=== PATIENT | male | born 1980 | race Hispanic/Latino ===

== ENCOUNTER 2016-12-19 08:33 | Emergency (ER) | payer SELFPAY ==
[2016-12-19 08:38] VITALS: BP 156/80; PULSE 117; RESP 18; TEMP 98.3; O2SAT 96
--- NOTE | 2016-12-19 09:07 | ED PDOC ---
HPI: Psych/Substance Abuse Time Seen by Provider: 12/19/16 08:51 Chief Complaint (Nursing): Psychiatric Evaluation History Per: Patient History/Exam Limitations: no limitations Current Symptoms Are (Timing): Still Present Modifying Factor(s): Alcohol Additional Complaint(s): 36-year-old male, PMHx includes EtOH Abuse, Anxiety and Bipolar Disorder, presents to the emergency department with complaints of anxiety. Patient states he has been feeling increasingly depressed and anxious over the past several days. Patient woke up this morning and did not feel well, resulting in him coming to the ED for evaluation. States "my skin is crawling." Denies nausea/ vomiting, any other associated symptoms or pain. Patient reports he has been prescribed Klonopin, but does not take it because he drinks (last drink was last night. Patient is taking Trazodone and Navesink. Denies SI/HI. No other complaints at this time. Past Medical History Reviewed: Historical Data, Nursing Documentation, Vital Signs Vital Signs: Last Vital Signs Temp 98.3 F 12/19/16 08:37 Pulse 117 H 12/19/16 08:37 Resp 18 12/19/16 08:37 BP 156/80 H 12/19/16 08:37 Pulse Ox 96 12/19/16 08:37 - Family History Family History: States: Unknown Family Hx - Allergies Allergies/Adverse Reactions: Allergies Allergy/AdvReac Type Severity Reaction Status Date / Time NSAIDS (Non-Steroidal Allergy Severe Verified 12/19/16 09:03 Anti-Inflamma Review of Systems ROS Statement: Except As Marked, All Systems Reviewed And Found Negative Constitutional: Negative for: Fever, Chills Cardiovascular: Negative for: Chest Pain Respiratory: Negative for: Cough, Shortness of Breath Gastrointestinal: Negative for: Nausea, Vomiting Skin: Negative for: Rash Neurological: Negative for: Weakness, Numbness, Headache, Dizziness Psych: Positive for: Anxiety, Depression. Negative for: Suicidal ideation Physical Exam - Reviewed Nursing Documentation Reviewed: Yes Vital Signs Reviewed: Yes - Physical Exam Appears: Positive for: Non-toxic, No Acute Distress (Calm. Co-operative. No signs or sx of withdrawal.) Head Exam: Positive for: ATRAUMATIC, NORMOCEPHALIC Skin: Positive for: Warm, Dry. Negative for: Rash Eye Exam: Positive for: Normal appearance, EOMI ENT: Positive for: Other (No tongue fasciculation) Neck: Positive for: Painless ROM Cardiovascular/Chest: Positive for: Regular Rate, Rhythm. Negative for: Edema Respiratory: Positive for: Normal Breath Sounds. Negative for: Accessory Muscle Use, Respiratory Distress Gastrointestinal/Abdominal: Positive for: Soft. Negative for: Tenderness Back: Positive for: Normal Inspection. Negative for: L CVA Tenderness, R CVA Tenderness Extremity: Positive for: Normal ROM. Negative for: Tenderness, Pedal Edema Neurologic/Psych: Positive for: Alert, Oriented - ECG O2 Sat by Pulse Oximetry: 96 Pulse Ox Interpretation: Normal - Progress ED Course And Treament: 1150: Crisis saw pt. Does not meet criteria for admit. Fu outpt. AAOx3. Pain free. Ambulated with no issues. Not homicidal or suicidal at this time. Medical Decision Making Medical Decision Making: Plan * UDS, EtOH Serum * Crisis Evaluation * Reassess and Disposition Scribe Attestation: Documented by Jak Wright, acting as a scribe for Daryn Potter MD Provider Scribe Attestation: All medical record entries made by the Scribe were at my direction and personally dictated by me. I have reviewed the chart and agree that the record accurately reflects my personal performance of the history, physical exam, medical decision making, and the department course for this patient. I have also personally directed, reviewed, and agree with the discharge instructions and disposition. Disposition - Clinical Impression Clinical Impression: Depression, Alcohol abuse - Patient ED Disposition Is Patient to be Admitted: No Counseled Patient/Family Regarding: Studies Performed, Diagnosis, Need For Followup - Disposition Referrals: [facility] [Outside] - 12/20/16 Disposition: Routine/Home Disposition Time: 11:51 Condition: STABLE Additional Instructions: Return if not better in 3 days. Instructions: Abuse of Alcohol (ED), Depression (ED)
== END 2016-12-19 12:07 | disposition home or self-care (01) ==
LOC: H.ER 08:33
DX: F41.9 Anxiety disorder, unspecified (principal); F31.9 Bipolar disorder, unspecified; F10.10 Alcohol abuse, uncomplicated
CPT/HCPCS: 99282; G0480

== ENCOUNTER 2017-03-31 17:59 | Emergency (ER) | payer SELFPAY ==
[2017-03-31 18:10] VITALS: BP 127/68; PULSE 79; RESP 16; TEMP 98.7; O2SAT 97
[2017-03-31] MEDS ORDERED: Liquid Adhesive TOP ONE (18:16)
--- NOTE | 2017-03-31 18:54 | ED PDOC ---
HPI: Eye Injury/Pain Time Seen by Provider: 03/31/17 18:12 Chief Complaint (Nursing): Eye Problem Chief Complaint (Provider): Eye Problem History Per: Patient History/Exam Limitations: no limitations Onset/Duration Of Symptoms: Hrs (prior to arrival ) Additional Complaint(s): Dario Jay, 36 year old male presents to the ED for a head laceration while practicing kick-boxing today. The patient states when his arm pad was kicked, he accidentally punched himself on the left upper eyelid causing his laceration. He denies headache, loss of consciousness, neck pain, or any other injury. PMD: None Provided Past Medical History Reviewed: Historical Data, Nursing Documentation, Vital Signs Vital Signs: Last Vital Signs Temp 98.7 F 03/31/17 18:06 Pulse 79 03/31/17 18:06 Resp 16 03/31/17 18:06 BP 127/68 03/31/17 18:06 Pulse Ox 97 03/31/17 18:06 - Medical History PMH: Anxiety, Bipolar Disorder Denies: Diabetes, Hepatitis, HIV, HTN, Seizures, Sexually Transmitted Disease - Family History Family History: States: Unknown Family Hx - Social History Current smoker - smoking cessation education provided: Yes Alcohol: Other Drugs: Denies - Allergies Allergies/Adverse Reactions: Allergies Allergy/AdvReac Type Severity Reaction Status Date / Time NSAIDS (Non-Steroidal Allergy Severe Verified 12/19/16 09:03 Anti-Inflamma Review of Systems ROS Statement: Except As Marked, All Systems Reviewed And Found Negative Musculoskeletal: Negative for: Neck Pain Skin: Positive for: Other (laceration to left upper eyelid ) Neurological: Negative for: Headache, Other (no loss of consciousness) Physical Exam - Reviewed Nursing Documentation Reviewed: Yes Vital Signs Reviewed: Yes - Physical Exam Appears: Positive for: Well, Non-toxic, No Acute Distress Head Exam: Positive for: ATRAUMATIC, NORMAL INSPECTION, NORMOCEPHALIC (1/2 cm linear, superficial laceration to left upper eyelid w/o surrounding swelling, tenderness,or active bleeding) Neurologic/Psych: Positive for: Alert (x3), Oriented - ECG O2 Sat by Pulse Oximetry: 97 (RA) Pulse Ox Interpretation: Normal Medical Decision Making Medical Decision Making: Impression: Head Laceration Plan: * Mastisol Adhesive 0.66 ml Top Once Scribe Attestation: Documented by Lenora Santoyo, acting as a scribe for Onofre Barragan PA-C. Provider Scribe Attestation: All medical record entries made by the Scribe were at my direction and personally dictated by me. I have reviewed the chart and agree that the record accurately reflects my personal performance of the history, physical exam, medical decision making, and the department course for this patient. I have also personally directed, reviewed, and agree with the discharge instructions and disposition. Procedures - Time-Out Type of Procedure: Laceration repair Site of Procedure: L upper eyelid Correct Patient (with visual ID + MR# on ID Band): Yes Correct Procedure: Yes Correct Site Marked: Yes - Laceration/Wound Repair Eyelid laceration Wound Length (cm): 1 Wound's Depth, Shape: superficial Wound Explored: clean Irrigated w/ Saline (ccs): 300 Wound Repaired With: Skin adhesive Wound Complexity: Simple Disposition - Clinical Impression Clinical Impression: Head injury, Eyelid laceration - Patient ED Disposition Is Patient to be Admitted: No - Disposition Disposition: Routine/Home Disposition Time: 18:20 Condition: STABLE Instructions: Head Injury (ED), Skin Adhesive Care (ED) Print Language: [place]ISH
== END 2017-03-31 19:00 | disposition home or self-care (01) ==
LOC: H.ER 17:59
DX: S01.81XA Laceration without foreign body of other part of head, initial encounter (principal); W22.8XXA Striking against or struck by other objects, initial encounter; Y92.89 Other specified places as the place of occurrence of the external cause

== ENCOUNTER 2018-05-25 16:25 | Emergency (ER) | payer OTHER ==
[2018-05-25 16:39] VITALS: BP 135/78; PULSE 88; RESP 16; TEMP 98; O2SAT 98
--- NOTE | 2018-05-25 16:59 | ED PDOC ---
HPI: Back Time Seen by Provider: 05/25/18 16:40 Chief Complaint (Nursing): Back Pain Chief Complaint (Provider): Back pain History Per: Patient Additional Complaint(s): Dario Jay is a 38 year old male, with a past medical history of bipolar disorder, who presents to the emergency department complaining of sudden lower back pain onset x35min prior to arrival. Patient was in the gym doing pull-ups and squats but when he dropped down from a pull up and felt sudden pain to lower back. Patient states he is unable to stand up completely straight due to pain. He took 3 aspirins prior to arrival but this did not help with the pain. He denies any radiation of pain, denies any bowel or bladder dysfunction. PMD: None Past Medical History Reviewed: Historical Data, Nursing Documentation, Vital Signs Vital Signs: Last Vital Signs Temp 98.0 F 05/25/18 16:35 Pulse 88 05/25/18 16:35 Resp 16 05/25/18 16:35 BP 135/78 05/25/18 16:35 Pulse Ox 98 05/25/18 16:35 - Medical History PMH: Anxiety, Bipolar Disorder - Surgical History Surgical History: No Surg Hx - Family History Family History: States: No Known Family Hx - Living Arrangements Living Arrangements: With Family - Social History Current smoker - smoking cessation education provided: Yes (occasional smoker) Alcohol: None Drugs: Denies - Home Medications Home Medications: Ambulatory Orders Medication Instructions Recorded Cyclobenzaprine [Cyclobenzaprine 10 mg PO TID PRN #20 tab 05/25/18 HCl] traMADol [Ultram] 50 mg PO Q6H PRN #10 tab 05/25/18 - Allergies Allergies/Adverse Reactions: Allergies Allergy/AdvReac Type Severity Reaction Status Date / Time NSAIDS (Non-Steroidal Allergy Severe RASH Verified 05/25/18 16:35 Anti-Inflamma Review of Systems ROS Statement: Except As Marked, All Systems Reviewed And Found Negative Musculoskeletal: Positive for: Back Pain (lower) Physical Exam - Reviewed Nursing Documentation Reviewed: Yes Vital Signs Reviewed: Yes - Physical Exam Appears: Positive for: Well, Non-toxic, Uncomfortable Head Exam: Positive for: ATRAUMATIC, NORMOCEPHALIC Skin: Positive for: Normal Color. Negative for: Rash Eye Exam: Positive for: Normal appearance Cardiovascular/Chest: Positive for: Regular Rate, Rhythm Respiratory: Positive for: Normal Breath Sounds. Negative for: Respiratory Distress Back: Positive for: Muscle Spasm, Other (tenderness to lower lumbar region, no palpable deformity, negative b/l straight leg raise, patient is able to heel and toe walk) Extremity: Positive for: Normal ROM (upper and lower extremities). Negative for : Deformity Neurologic/Psych: Positive for: Alert, Oriented, Gait (steady) - ECG O2 Sat by Pulse Oximetry: 98 (RA) Pulse Ox Interpretation: Normal - Other Rad LS Spine X-ray X-Ray: Interpreted by Me, Viewed By Me X-Ray Interpretation: no fx, no dis Medical Decision Making Medical Decision Making: Time: 16:40 Initial Impression: Lower back pain Initial Plan: --Flexeril 10 mg PO --Ultram 50 mg PO --LS Spine AP/LAT [RAD] Patient is aware of x-ray results. He states he feels better after meds given in ED. Rx tramadol and flexeril given. Advised rest and follow up with primary care doctor or with orthopedist for any persistent symptoms. Scribe Attestation: Documented by Hector Ervin, acting as a scribe for Paola Edwards PA-C Provider Scribe Attestation: All medical record entries made by the Scribe were at my direction and personally dictated by me. I have reviewed the chart and agree that the record accurately reflects my personal performance of the history, physical exam, medical decision making, and the department course for this patient. I have also personally directed, reviewed, and agree with the discharge instructions and disposition. Disposition - Clinical Impression Clinical Impression: Back strain - Patient ED Disposition Is Patient to be Admitted: No Counseled Patient/Family Regarding: Studies Performed, Diagnosis, Need For Followup, Rx Given - Disposition Referrals: Tylor Gómez III, MD [Staff Provider] - Disposition: Routine/Home Disposition Time: 17:39 Condition: STABLE Additional Instructions: Take rx meds as directed. Rest and avoid heavy lifting. Follow up with primary care doctor or with orthopedist for any persistent symptoms. Prescriptions: Cyclobenzaprine [Cyclobenzaprine HCl] 10 mg PO TID PRN #20 tab PRN Reason: Muscle Spasm traMADol [Ultram] 50 mg PO Q6H PRN #10 tab PRN Reason: Pain, Moderate (4-7) Instructions: Muscle Strain, Back Exercises, Low Back Pain in Adults Forms: [facility] (H[place]er)
--- NOTE | 2018-05-25 17:18 | RAD ---
Date of service: 05/25/2018 PROCEDURE: Radiographs of the Lumbar Spine. HISTORY: trauma COMPARISON: No prior. FINDINGS: BONES: Three views of the lumbar spine were performed for low back pain and trauma. No fracture is seen. No malalignment is noted. Disc spaces are adequately maintained. Minimal endplate changes noted at L4 superiorly. No presacral masses are not clearly seen. No sacroiliac joint widening is noted. Pedicles are intact. No scoliosis is seen. DISC SPACES: Unremarkable. OTHER FINDINGS: None. IMPRESSION: No evidence of fracture or malalignment.
== END 2018-05-25 18:33 | disposition home or self-care (01) ==
LOC: H.ER 16:25
DX: S39.012A Strain of muscle, fascia and tendon of lower back, initial encounter (principal); F17.200 Nicotine dependence, unspecified, uncomplicated; Z86.59 Personal history of other mental and behavioral disorders; X50.3XXA Overexertion from repetitive movements, initial encounter; Y93.B2 Activity, push-ups, pull-ups, sit-ups; Y92.9 Unspecified place or not applicable